=== PATIENT | female | born 1975 | race Caucasian/White ===

== ENCOUNTER 2017-05-25 16:17 | Outpatient (CLI) | payer MEDICAID ==
[~2017-05-25] VITALS: Ht 149.9 cm; Wt 78.4 kg
[2017-05-25 16:57] VITALS: BP 125/57; RESP 16; Ht 149.9 cm; Wt 78.4 kg
[2017-05-25] MEDS ORDERED: PREN1TAB17 PO (17:02)
--- NOTE | 2017-05-25 17:41 | RADRPT ---
PROCEDURE: US OB biophysical profile. CLINICAL INDICATION: decreased movements, GDM TECHNIQUE: Multiple sonographic images of the pelvis were obtained. The images were reviewed on a PACS workstation. COMPARISON: No prior studies are available for comparison. FINDINGS: There is a single viable intrauterine gestation. Cardiac activity is present with 130 beats per min grindstone. There is a vertex presentation. The placenta is fundal. There is no evidence of placental abruption. There is a normal amount of amniotic fluid with an OMID = 11.8 cm. Biophysical profile: movement 2/2 tone 2/2. breathing 2/2 OMID 2/2 Total 03/10 RPTAT: AA . IMPRESSION: Normal biophysical profile. . .Stefan Simons MD, MD Date Time Electronically viewed and signed by .Stefan Simons MD, MD on 05/25/2017 17:41 .S/
--- NOTE | 2017-05-25 18:18 | QN ---
Documentation Comment iup 36 weeks gdm vss nst reactive a/p iup 36 weeks gdm [facility] GIULIA ESPARZA MD May 25, 2017 18:18
== END 2017-05-25 18:00 | disposition home or self-care (01) ==
LOC: OBT 16:17 → L-D 16:21 → OBT 18:00
PROVIDERS: ATTEND Obstetrics & Gynecology
DX: O24.419 Gestational diabetes mellitus in pregnancy, unspecified control (principal); Z3A.36 36 weeks gestation of pregnancy
CPT/HCPCS: 76818; 82962; Z7500; G0463

== ENCOUNTER 2017-06-15 16:47 | Inpatient (IN) | payer MEDICAID ==
[~2017-06-15] VITALS: Ht 152.4 cm; Wt 80.5 kg
[~2017-06-15 16:47] MED LIST: PREN1TAB17 PO
--- NOTE | 2017-06-15 18:14 | RADRPT ---
PROCEDURE: Obstetrical ultrasound CLINICAL INDICATION: INDUCTION TECHNIQUE: Multiple sonographic images of the pelvis were obtained. The images were reviewed on a PACS workstation. COMPARISON: Obstetrical ultrasound from 05/25/2017 FINDINGS: The cervix is not well visualized. There is a single viable intrauterine gestation. Cardiac activity is present with 136 beats per minute. There is a vertex presentation. The placenta is fundal. There is no evidence for an abruption or placenta previa. There is a subjectively normal amount of amniotic fluid. Measurements were made in order to determine age. The results are as follows (cm): BPD =9.55 HC =33.89 AC =35.50 FL =7.66 Estimated gestational age by ultrasound of approximately 39 weeks, 1 day. The estimated date of delivery by ultrasound is 06/21/2017. Estimated gestational age by LMP of approximately 39 weeks, 2 days. The estimated date of delivery by LMP is 06/20/2017. EFW = 3732 grams (70th percentile) IMPRESSION: Single viable intrauterine gestation of approximately 39 weeks, 1 day . The estimated date of delivery is 06/21/2017 . Dating by ultrasound is within 1 day of dating by LMP. Cephalic presentation. Estimated weight is 3732 g which is in the 70th percentile. RPTAT: EE Physician Delaney Date Time Electronically viewed and signed by Physician Delaney on 06/15/2017 18:13 /
[2017-06-15] MEDS ORDERED: IBUPROFEN 600 MG TAB PO PRN (18:30)
[2017-06-15] MEDS ORDERED: BUTORPHANOL 2 MG INJ IV PRN (18:30)
[2017-06-15] MEDS ORDERED: LIDOCAINE 1% (MPF) 30 ML INJ INJ PRN (18:30)
[2017-06-15] MEDS ORDERED: OXYTOCIN 30 UNITS/LR 500 ML IV SCH ×3 (18:30→19:30)
[2017-06-15] MEDS ORDERED: OXYTOCIN 30 UNITS/LR 500 ML IV PRN (18:30)
[2017-06-15] MEDS ORDERED: METHYLERGONOVINE 0.2 MG INJ IM PRN (18:30)
[2017-06-15] MEDS ORDERED: CARBOPROST 250 MCG INJ IM PRN (18:30)
[2017-06-15] MEDS ORDERED: MISOPROSTOL 200 MCG TAB PR PRN (18:30)
[2017-06-15] MEDS ORDERED: MINERAL OIL LIGHT 10 ML VIAL TOP ONE (18:30)
[2017-06-15 18:39] VITALS: Ht 152.4 cm; Wt 80.5 kg
[2017-06-15 18:41] VITALS: BP 126/74; PULSE 69; RESP 20
[2017-06-15] MEDS: LACTATED RINGER'S 1,000 ML IV SCH (18:46)
[2017-06-15 18:49] LABS: BASOPHILS % 0.3 % (0.0-2.0); EOSINOPHILS # 0.2 10^3/ul (0.0-0.5); EOSINOPHILS % 2.1 % (0.0-7.0); HEMATOCRIT 34.5 % (37.0-47.0); HEMOGLOBIN 11.6 g/dl (12.0-16.0); LYMPHOCYTES # 1.6 10^3/ul (0.8-2.9); LYMPHOCYTES % 22.7 % (15.0-51.0); MEAN CORPUSCULAR HGB CONC 33.6 g/dl (32.0-37.0); MEAN CORPUSCULAR VOLUME 86.3 fl (82.0-101.0); MONOCYTE # 0.6 10^3/ul (0.3-0.9); MONOCYTES % 7.8 % (0.0-11.0); NEUTROPHIL # 4.7 10^3/ul (1.6-7.5); NEUTROPHILS % 66.7 % (39.0-77.0); PLATELET COUNT 253 10^3/UL (140-415); RED CELL DISTRIBUTION WIDTH 15.1 % (11.5-14.5); WHITE BLOOD COUNT 7.1 10^3/ul (4.8-10.8)
[2017-06-15 18:53] LABS: ADD UMIC YES; UR ASCORBIC ACID NEGATIVE (NEGATIVE); UR BACTERIA FEW /HPF (NONE SEEN); UR BILIRUBIN (Dip) NEGATIVE (NEGATIVE); UR BLOOD (Dip) 1+ mg/dL (NEGATIVE); UR CLARITY CLEAR (CLEAR); UR COLOR STRAW (YELLOW); UR GLUCOSE (Dip) NEGATIVE (NEGATIVE); UR KETONES (Dip) NEGATIVE (NEGATIVE); UR LEUKOCYTE ESTERASE (Dip) 1+ Leu/ul (NEGATIVE); UR MUCUS FEW /HPF (NONE SEEN); UR NITRITE (Dip) NEGATIVE (NEGATIVE); UR RBC 9 /HPF (0-5); UR SPECIFIC GRAVITY (Dip) 1.004 (1.003-1.030); UR SQUAMOUS EPITHELIAL CELL FEW /HPF (FEW); UR TOTAL PROTEIN (Dip) NEGATIVE (NEGATIVE); UR UROBILINOGEN (Dip) NEGATIVE (NEGATIVE)
[2017-06-15 19:05] LABS: INR 0.91; PARTIAL THROMBOPLASTIN TIME 28.1 Sec (25.0-35.0); PROTIME 12.3 Sec (12.2-14.2)
[2017-06-15 19:06] LABS: ALANINE AMINOTRANSFERASE 19 IU/L (13-69); ALBUMIN 3.3 g/dl (3.3-4.9); ALBUMIN/GLOBULIN RATIO 0.94; ALKALINE PHOSPHATASE 170 IU/L (42-121); ANION GAP 13 (8-16); ASPARTATE AMINO TRANSFERASE 17 IU/L (15-46); BILIRUBIN,INDIRECT 0.1 mg/dl (0-1.1); BILIRUBIN,TOTAL 0.1 mg/dl (0.2-1.3); BLOOD UREA NITROGEN 7 mg/dl (7-20); CALCIUM 9.7 mg/dl (8.4-10.2); CARBON DIOXIDE 21 mmol/L (21-31); CHLORIDE 110 mmol/L (97-110); CREATININE 0.55 mg/dl (0.44-1.00); GLUCOSE 77 mg/dl (70-220); POTASSIUM 3.8 mmol/L (3.5-5.1); SODIUM 140 mmol/L (135-144); TOTAL PROTEIN 6.8 g/dl (6.1-8.1)
[2017-06-15] MEDS: DEXTROSE 5%-LR 1,000 ML IV SCH (19:16)
[2017-06-16] MEDS: DEXTROSE 5%-LR 1,000 ML IV SCH ×2 (02:56→10:29)
[2017-06-16] MEDS: LACTATED RINGER'S 1,000 ML IV SCH ×3 (06:37→08:19)
[2017-06-16] MEDS ORDERED: FENTAnyl 2MCG/ML-ROPIV 0.2% 100 ML ONE (06:48)
--- NOTE | 2017-06-16 06:58 | HP ---
Date/Time of Note Date/Time of Note DATE: 06/16/17 TIME: 06:57 OB - History Hx of Present Free Text/Dictation 39+wks in labor : 5 Para: 4 Care: Good Care Ultrasounds: Normal mid trimester US Obstetrical Complications: Gestational Diabetes Medical Complications: None Past Family/Social History * Past Medical, Surgical, Family and Obstetric Histories reviewed from chart. OB Admission Exam Vital Signs Vital Signs Vital Signs Date Time Temp Pulse Resp B/P Pulse Ox O2 Delivery O2 Flow Rate FiO2 06/15/17 18:41 98.0 69 20 126/74 Room Air Physical Exam Abdomen: WNL Extremities: Normal Reflexes: Normal Cervical Dilatation: 3cm Effacement: 50% Station: -1 Membranes: Intact Heart Rate: 140's Accelerations: Accelerations Present Decelerations: No Decelerations Varibility: Moderate Contractions on Admission: 6-10 Minutes Apart Last 72 hourBlood Glucose Bedside Glucose - 72 Hours Test 06/15/17 19:01 06/15/17 23:16 06/16/17 03:18 Bedside Glucose 76mg/dL (70-220) 95mg/dL (70-220) 95mg/dL (70-220) Last 72 hours Lab Results CBC & BMP 06/15/17 18:30 Liver Function Test 06/15/17 18:30 Alanine Aminotransferase (ALT/SGPT) 19 Albumin 3.3 Alkaline Phosphatase 170 H Aspartate Amino Transf (AST/SGOT) 17 Direct Bilirubin 0.00 Total Protein 6.8 OB Assessment/Plan Reason for admission: observation Plan: Expectant Management Induction Method: per Pitocin Protocol VICKEY BERUMEN M.D. Jun 16, 2017 06:58
[2017-06-16] MEDS ORDERED: NALOXONE (0.4 MG/ML) INJ IV PRN (07:30)
[2017-06-16] MEDS ORDERED: FENTAnyl 2MCG/ML-ROPIV 0.2% 100 ML BAG EPI SCH (07:30)
--- NOTE | 2017-06-16 10:27 | LDN ---
Date/Time of Note Date/Time of Note DATE: 06/16/17 TIME: 10:26 Delivery Summary Weeks of Gestation 39+ Placenta Delivered: Spontaneously Meconium: none Episiotomy: No Anesthesia type: Epidural Estimated blood loss: 200 Sponge & Needle done & correct: Yes All needle counts correct: Yes Any foreign bodies felt in the: No Problems: Infant Delivery Information Sex Sex: male Apgars 1 Minute: 9 5 Minute: 9 Suctioning Nose & mouth suctioned at francis: Yes Delee suction performed: Yes Umbilical Cord Umbilical cord with: 3 Vessels Cord presentations: no nuchal cord Mother & Baby Disposition Disposition Mom & Baby to Maternity; Good: Yes Baby to NICU: No VICKEY BERUMEN M.D. Jun 16, 2017 10:27
[2017-06-16 12:40] VITALS: BP 118/78; PULSE 74; RESP 18
[2017-06-16] MEDS: LACTATED RINGER'S 1,000 ML IV* SCH ×2 (12:44→20:44)
[2017-06-16] MEDS ORDERED: OXYCODONE/ASPIRIN (4.88/325) TAB PO PRN (13:00)
[2017-06-16] MEDS: IBUPROFEN 600 MG TAB PO SCH ×3 (13:00→23:20)
[2017-06-16] MEDS ORDERED: MISOPROSTOL 200 MCG TAB PR PRN (13:00)
[2017-06-16] MEDS ORDERED: METHYLERGONOVINE 0.2 MG INJ IM PRN (13:00)
[2017-06-16] MEDS ORDERED: OXYTOCIN 30 UNITS/LR 500 ML IV PRN (13:00)
[2017-06-16] MEDS ORDERED: ZOLPIDEM 5 MG TAB PO PRN (13:00)
[2017-06-16] MEDS ORDERED: SENNA/DOCUSATE NA (8.6MG/50MG) TAB PO PRN (13:00)
[2017-06-16] MEDS ORDERED: CARBOPROST 250 MCG INJ IM PRN (13:00)
[2017-06-16] MEDS: LANOLIN 7 GM TUBE TOP PRN (14:55)
[2017-06-16 16:38] VITALS: BP 107/77; PULSE 67; RESP 18
[2017-06-16 20:00] VITALS: BP 104/60; PULSE 69; RESP 20
[2017-06-16] MEDS ORDERED: INFLUENZA VIRUS VACCINE 0.5 ML SYG IM* ONE (20:00)
[2017-06-16] MEDS: SENNA/DOCUSATE NA (8.6MG/50MG) TAB PO SCH (21:31)
[2017-06-17 03:56] VITALS: BP 109/64; PULSE 70; RESP 20
[2017-06-17] MEDS: LACTATED RINGER'S 1,000 ML IV* SCH (04:44)
[2017-06-17] MEDS: IBUPROFEN 600 MG TAB PO SCH ×4 (05:15→23:52)
[2017-06-17 08:15] VITALS: BP 120/59; PULSE 63; RESP 17
[2017-06-17] MEDS: SENNA/DOCUSATE NA (8.6MG/50MG) TAB PO SCH ×2 (08:52→20:52)
[2017-06-17] MEDS: LANOLIN 7 GM TUBE TOP PRN (09:03)
[2017-06-17 10:49] LABS: BASOPHILS % 0.2 % (0.0-2.0); EOSINOPHILS # 0.2 10^3/ul (0.0-0.5); EOSINOPHILS % 1.9 % (0.0-7.0); HEMATOCRIT 31.4 % (37.0-47.0); HEMOGLOBIN 10.2 g/dl (12.0-16.0); LYMPHOCYTES # 1.6 10^3/ul (0.8-2.9); LYMPHOCYTES % 19.7 % (15.0-51.0); MEAN CORPUSCULAR HEMOGLOBIN 28.4 pg (29.0-33.0); MEAN CORPUSCULAR HGB CONC 32.5 g/dl (32.0-37.0); MEAN CORPUSCULAR VOLUME 87.5 fl (82.0-101.0); MEAN PLATELET VOLUME 10.4 fl (7.4-10.4); MONOCYTE # 0.4 10^3/ul (0.3-0.9); MONOCYTES % 5.1 % (0.0-11.0); NEUTROPHILS % 72.6 % (39.0-77.0); PLATELET COUNT 213 10^3/UL (140-415); RED BLOOD COUNT 3.59 10^6/ul (4.20-5.40); RED CELL DISTRIBUTION WIDTH 15.5 % (11.5-14.5); WHITE BLOOD COUNT 8.3 10^3/ul (4.8-10.8)
[2017-06-17] MEDS ORDERED: MEASLES,MUMPS,RUBELLA VACCINE INJ SC* ONE (15:00)
[2017-06-17 15:56] VITALS: BP 116/56; PULSE 66; RESP 18
[2017-06-17 19:45] VITALS: BP 127/61; PULSE 65; RESP 18
[2017-06-18 04:00] VITALS: BP 112/62; PULSE 61; RESP 18
[2017-06-18] MEDS: IBUPROFEN 600 MG TAB PO SCH (06:00)
[2017-06-18 08:00] VITALS: BP 117/60; PULSE 68; RESP 16
[2017-06-18] MEDS ORDERED: DIPHTH/TET/ACEL PERTUSS (ADULT) 0.5 ML VIAL IM* ONE (09:00)
--- NOTE | 2017-06-18 09:04 | QN ---
Documentation Comment Late Entry Note: 06/17/17 PPD#1 is stable afebrile No VB+BM+vpoids VS stable Gen NAD Abd soft NT ND ---->discharge Home VICKEY BERUMEN M.D. Jun 18, 2017 09:04
--- NOTE | 2017-06-18 09:06 | DS ---
Date/Time of Note Date/Time of Note DATE: 06/18/17 TIME: 09:05 Discharge Summary Admission/Discharge Info Admit Date/Time Jun 15, 2017 at 16:47 Discharge Date/Time Jun 17 Discharge Diagnosis POSTpatum Patient Condition: Good Hospital Course uneventful Home Meds Reported Medications Vit-Iron Fumarate-FA ( Tablet) 1 Each Tablet, 1 TAB PO DAILY, TAB 05/25/17 Primary Care Provider Care Physician No Primary Pending Labs Laboratory Tests Test 06/17/17 09:53 White Blood Count 8.310^3/ul (4.8-10.8) Red Blood Count 3.5910^6/ul (4.20-5.40) Hemoglobin 10.2g/dl (12.0-16.0) Hematocrit 31.4% (37.0-47.0) Mean Corpuscular Volume 87.5fl (82.0-101.0) Mean Corpuscular Hemoglobin 28.4pg (29.0-33.0) Mean Corpuscular Hemoglobin Concent 32.5g/dl (32.0-37.0) Red Cell Distribution Width 15.5% (11.5-14.5) Platelet Count 21004^3/UL (140-415) Mean Platelet Volume 10.4fl (7.4-10.4) Neutrophils % 72.6% (39.0-77.0) Lymphocytes % 19.7% (15.0-51.0) Monocytes % 5.1% (0.0-11.0) Eosinophils % 1.9% (0.0-7.0) Basophils % 0.2% (0.0-2.0) Nucleated Red Blood Cells % 0.0/100WBC (0.0-0.0) Neutrophils # 6.010^3/ul (1.6-7.5) Lymphocytes # 1.610^3/ul (0.8-2.9) Monocytes # 0.410^3/ul (0.3-0.9) Eosinophils # 0.210^3/ul (0.0-0.5) Basophils # 0.010^3/ul (0.0-0.1) Nucleated Red Blood Cells # 0.010^3/ul (0.0-0.0) VICKEY BERUMEN M.D. Jun 18, 2017 09:06
[2017-06-18] MEDS: SENNA/DOCUSATE NA (8.6MG/50MG) TAB PO SCH (09:07)
== END 2017-06-18 13:03 | disposition home or self-care (01) | DRG 775 ==
LOC: L-D 16:47 → PP1 06-16 12:33 → EDSTATUS 06-20 16:44
PROVIDERS: ADMIT Obstetrics & Gynecology; ATTEND Obstetrics & Gynecology
PROC: 4A1HXCZ Monitoring of Products of Conception, Cardiac Rate, External Approach (ICD-10-PCS; 2017-06-15)
PROC: 10E0XZZ Delivery of Products of Conception, External Approach (ICD-10-PCS; principal; 2017-06-16)
PROC: 3E0234Z Introduction of Serum, Toxoid and Vaccine into Muscle, Percutaneous Approach (ICD-10-PCS; 2017-06-17)
PROC: 3E0234Z Introduction of Serum, Toxoid and Vaccine into Muscle, Percutaneous Approach (ICD-10-PCS; 2017-06-18)
DX: O24.429 Gestational diabetes mellitus in childbirth, unspecified control (principal); Z23 Encounter for immunization; Z37.0 Single live birth; Z3A.39 39 weeks gestation of pregnancy
CPT/HCPCS: 62319; 76815; 80053; 81001; 82962; 85025; 85384; 85610; 85730; 86592; 86900; 86901; 87340; 90686; 90715; 99464; J2210; J2590; J3010; J7120; J7121